=== PATIENT | male | born 1980 | race Two or more races ===

== ENCOUNTER 2016-05-16 00:29 | Emergency (ER) | payer MEDICAID ==
[~2016-05-16] VITALS: Ht 180.3 cm; Wt 72.6 kg
[2016-05-16] MEDS ORDERED: KETOROLAC TROMETH 60MG/2ML VIAL IM ONE (02:00)
[2016-05-16] MEDS ORDERED: LIDOCAINE 1% HCL (LOCAL ANESTH.) INJ 20ML MDV ONE (02:53)
[2016-05-16] MEDS ORDERED: TETANUS-DIPTH-ACEL PERTUSSIS 0.5ML SYRG IM ONE (03:00)
[2016-05-16] MEDS ORDERED: cefTRIAXone SOD 1,000 MG VL IM ONE (03:00)
[2016-05-16] MEDS ORDERED: LIDOCAINE 1% HCL (LOCAL ANESTH.) INJ 20ML MDV IJ ONE (03:15)
[2016-05-16 04:09] VITALS: BP 138/82
== END 2016-05-16 04:22 ==
LOC: ER 00:30
DX: S02.69XA Fracture of mandible of other specified site, initial encounter for closed fracture (principal); S00.81XA Abrasion of other part of head, initial encounter; F17.210 Nicotine dependence, cigarettes, uncomplicated; Z23 Encounter for immunization; W18.39XA Other fall on same level, initial encounter; Y93.02 Activity, running; Y99.8 Other external cause status; Y92.89 Other specified places as the place of occurrence of the external cause
CPT/HCPCS: 70486; 90471; 90715; 96372; 99284; J0696; J1885; J2001

== ENCOUNTER 2018-05-26 20:58 | Emergency (ER) | payer MEDICAID ==
[~2018-05-26] VITALS: Ht 180.3 cm; Wt 79.4 kg
[2018-05-27 00:32] VITALS: BP 136/84
[2018-05-27] MEDS ORDERED: BACLOFEN 10 MG TAB PO ONE (01:00)
[2018-05-27] MEDS ORDERED: HYDROcodone-ACET 10/325MG TAB PO ONE (01:00)
== END 2018-05-27 01:29 | disposition home or self-care (01) ==
LOC: ER 21:02
DX: M62.838 Other muscle spasm (principal); M54.2 Cervicalgia; R51 Headache; F17.210 Nicotine dependence, cigarettes, uncomplicated
CPT/HCPCS: 72040